=== PATIENT | female | born 1940 | race Caucasian/White ===

== ENCOUNTER → 2024-05-06 13:16 | Outpatient (REF) | payer MEDICARE, SELFPAY | LOC: HWRAD 13:16 | PROVIDERS: ATTENDING PHYSICIAN Family Medicine | DX: K80.20 Calculus of gallbladder without cholecystitis without obstruction (principal); R10.11 Right upper quadrant pain | CPT/HCPCS: 76700 ==

== ENCOUNTER 2024-06-25 18:00 | Inpatient (IN) | payer MEDICARE, SELFPAY ==
--- NOTE | 2024-06-22 09:59 | PTCARENOTE ---
During interview- patient stated she lives alone and no one will to be available post op. Stated she will be 'taking Uber home and I have an Apple watch if I need 911'. Pt stated she may have an acquaintance she can call if necessary. Vivien @
Dr. Martinez office notified of same.
--- NOTE | 2024-06-22 16:31 | PTCARENOTE ---
Umer Rinaldi was made aware of patient discharge situation noted by Sharon Padron RN>
[2024-06-25] VITALS (15 sets, daily range): BP systolic 0–182; BP diastolic 56–79; BMI 20.8
--- NOTE | 2024-06-25 07:30 | W.SUR.PREOP ---
Pre-Operative Surgical Note
-
I have examined this patient prior to the performance of the scheduled procedure.
The patient's condition is unchanged from the time of the current History and
Physical and the patient is able to undergo the scheduled procedure.
--- NOTE | 2024-06-25 11:05 | HP.FOC2 ---
Focused History & Physical
Chief Complaint
HPI:
Chief Complaint: right upper quadrant pain
HPI / Indication for Planned Procedure:
This is an 83-year-old female who presented to our clinic for evaluation of right upper quadrant pain. Tender to palpation and gallstones noted on ultrasound.
Relevant Past Medical History: Other ( Mitral regurgitation, hyperlipidemia, hypothyroidism, hypertension, pulmonary hypertension, MVP, CAD)
Relevant Social History: Negative
Relevant Family History: Negative
Relevant Past Surgical History: Negative
Review of Systems
Review of Pertinent Systems: All Systems Negative
Medication
See Medication form for detailed medications: Yes
Medication List (including Herbals & OTC):
levothyroxine 88 mcg tablet (Synthroid) 88 mcg PO HS 06/22/24
rosuvastatin 10 mg tablet 10 mg PO HS 06/22/24
Medications Reviewed: Yes
Allergies and Reactions
Patient has Allergies: Yes
Noted Allergies and Reactions:
Allergy/AdvReac Type Severity Reaction Status Date / Time
Penicillins Allergy Rash Verified 06/25/24 10:49
Pertinent Physical Exam
All Other Systems: Negative
Head/Neck: Normal
Diagnosis / Assessment
This is an 83-year-old female who presents with right upper quadrant pain, gallstones and ultrasound and high suspicion for biliary colic.
Plan / Procedure
Will plan for a laparoscopic cholecystectomy and cholangiogram.
The patient lives alone, given her advanced age and comorbidities, may keep overnight for observation/postoperative recovery.
Anesthesia/Sedation to be done by Anesthesia Provider: Yes
[2024-06-25] MEDS: TYLENOL 1000 MG PO (11:14)
[2024-06-25] MEDS: NORMOSOL-R 1000 IV (11:15)
--- NOTE | 2024-06-25 13:07 | W.IMMPOSTOP ---
Surgical Immed Post Op Note
-
Primary Surgeon: Haider Ray MD
Assisting Surgeon: None
Pre-op Diagnosis: Biliary colic
Post-op Diagnosis: Chronic cholecystitis, choledocholithiasis, duct of Luschka
Procedure Performed:
1. Laparoscopic cholecystectomy with cholangiogram
2. Laparoscopic Transcystic common bile duct exploration
Anesthesia Type: General
Specimen / Cultures:
Gallbladder and contents
Estimated Blood Loss: 11 cc
Complications: None
Operative Findings: Chronically inflamed gallbladder with adhesions from the duodenum over the infundibulum of the gallbladder. Critical view of safety obtained prior to a cholangiogram which demonstrated distal filling defects and poor filling of
the duodenum. The cholangiocatheter was advanced to push the biliary sludge into the duodenum and dilate the ampulla. Final cholangiogram demonstrated brisk flow into the duodenum. While removing the gallbladder off of the liver duct of Luschka
at the superior aspect of the gallbladder bed was identified with active leaking bile. This was ligated with a 3-0 Vicryl suture horizontal mattress. There was some diffuse raw surface bleeding from the liver bed that stopped with Surgicel and
pressure. Surgiflo was applied as well. A 19 Mexican round Deny drain was passed through the right lateralmost port and secured at the skin with a 2-0 nylon suture.
POST OP PLAN:
Imaging: None
Labs: Routine AM
Diet: Advance to Regular as tolerated
Analgesia: Tylenol 650mg q6 Saravanan, Eugenia 5mg q6 PRN, Dilaudid 0.5mg q2h PRN
Neuro/vascular checks: q4h
AC/AP: Hold Therapeutic AC, Ok for DVT PPx
Activity: Ad Madalyn
Wound/Incisions/Drains: Routine, DAVID to bulb suction
Abx: None
Dispo: RNF. Voicemail left for daughter
--- NOTE | 2024-06-25 13:13 | OR.RPT ---
Operative Report
Operative Report
Patient Name: Maggy Pearl
: 07/23/2040
Date of Operation: 06/25/2024
Preoperative Diagnosis: Biliary colic
Postoperative Diagnosis: Chronic cholecystitis, choledocholithiasis, duct of Luschka
Procedure(s):
1. Laparoscopic Cholecystectomy with Cholangiogram
2. Laparoscopic Transcystic common bile duct exploration
Surgeon(s):
Dr. Ray
Boxing Trainer(s):
REINA Bhatia
Anesthesia: General
Estimated Blood Loss: 17 cc
Urine Output: None
Drains/Lines/Implants: 19 Argentine round Deny drain
Specimens:
1. Gallbladder and contents
HPI/Surgical Indications:
This is an 83-year-old female with chronic right upper quadrant pain and found to have gallstones on ultrasound imaging. Exam, labs and imaging are consistent with symptomatic cholelithiasis. Risks/Benefits/Alternatives were discussed at length, and
the patient agreed to proceed with surgery.
Operative Findings: Chronically inflamed gallbladder with adhesions from the duodenum over the infundibulum of the gallbladder. Critical view of safety obtained prior to a cholangiogram which demonstrated distal filling defects and poor filling of
the duodenum. The cholangiocatheter was advanced to push the biliary sludge into the duodenum and dilate the ampulla. Final cholangiogram demonstrated brisk flow into the duodenum. While removing the gallbladder off of the liver duct of Luschka
at the superior aspect of the gallbladder bed was identified with active leaking bile. This was ligated with a 3-0 Vicryl suture horizontal mattress. There was some diffuse raw surface bleeding from the liver bed that stopped with Surgicel and
pressure. Surgiflo was applied as well. A 19 Argentine round Deny drain was passed through the right lateralmost port and secured at the skin with a 2-0 nylon suture.
Procedure Description:
The patient was brought to the Operating Room and placed in the supine position. IV antibiotics were infused and sequential compression devices were confirmed to be on. Following uneventful induction of general endotracheal anesthesia, an
orogastric tube was placed. The abdomen was prepped and draped in the usual sterile fashion. The abdomen was entered using an infraumbilical open Comfort technique with a 12 mm balloon trocar. Pneumoperitoneum to 15 mmHg pressure was obtained
without difficulty and we confirmed that no injury had occurred during our entry. The patient was positioned in reverse trendelenberg and rotated with the right side up slightly. Three (3) 5mm trocars were then placed along the right subcostal
margin. A locking grasping forceps was placed on the fundus of the gallbladder where it was then retracted cephalad and to the right. There was some flimsy adhesions between the duodenum and the infundibulum of the gallbladder which was lysed with
electrocautery and sharp dissection. Using appropriate grasping instruments, the peritoneum overlying the triangle of Calot was incised. The cystic duct/gallbladder junction was identified, dissected circumferentially. The cystic artery was
identified medially, was dissected circumferentially, and clipped. A critical view was obtained. A clip was then placed on the cystic duct/gallbladder junction and a ductotomy was made. A few small black oxalate gallstones were milked out of the
duct before free-flowing bile was identified. An intraoperative cholangiogram performed using fluoroscopy, which showed no flow of dye into the duodenum. There were no intra- or extrahepatic bile duct filling defects. The biliary anatomy appeared
otherwise normal. 1 mg of glucagon was administered and we allowed 2 minutes to pass before shooting another cholangiogram which redemonstrated poor flow into the duodenum and a few small filling defects. The catheter was then advanced through the
duct under fluoroscopic guidance pushing the defects into the duodenum and dilating up the ampulla. Final cholangiogram demonstrated and brisk flow into the duodenum and no residual filling defects. The catheter was removed and a clip was placed
proximally on the cystic duct and divided. This was reinforced with a 0 PDS Endoloop. The cystic artery was divided. The remaining soft tissue attachments of the gallbladder to the liver bed were then divided using electrocautery. There was no
spillage of bile or stones. The gallbladder bed was inspected and there was a fair amount of bleeding despite not violating the liver capsule from the superior aspect of the gallbladder bed this stopped with electrocautery and Surgicel application.
More medially we noted some bile leaking from the liver bed consistent with a duct of Luschka. This was ligated using a 3-0 Vicryl suture horizontal mattress, which completely stopped bile leak. We remove the Surgicel and though there was no
residual bleeding the entire gallbladder fossa was coated with Surgiflo/Floseal agent using a laparoscopic delivery device. The gallbladder was then extracted through the 12 mm trocar site using an endocatch bag. A 19 Argentine Edny drain was then
introduced through the right lateralmost port and passed up the right colic gutter and then across the gallbladder bed. This was then secured at the skin with a 2-0 nylon suture. The abdomen was again irrigated and excellent hemostasis was
assured. All remaining trocars were then removed and the pneumoperitoneum was evacuated. The 12 mm trocar site was closed using a running 0 PDS. All trocar sites were closed at the skin level using 4-0 Monocryl followed by Dermabond. Overall,
the patient tolerated the procedure well and was taken to the Recovery Room postoperatively in stable condition.
I was the attending physician and performed the procedure with assistance from the PHOTOGRAPHER STILL above. I was present for all portions of the case, excluding skin closure.
Haider Ray MD
[2024-06-25] MEDS: DILAUDID 0.25 MG IV ×4 (13:50→16:16)
[2024-06-25] MEDS: TYLENOL PO (17:00)
--- NOTE | 2024-06-25 17:56 | PTCARENOTE ---
pt admitted to room 2109 from the PACU. pt arrived at 1700 via bed, awake and alert. RINCON w/ ear buds in use for hearing aids. pt oriented to room, call patricia, bed controls and plan of care as documented. admission database and assessment
completed as documented. telemetry reading SR 70's. assisted to order dinner tray. will observe.
[2024-06-25] MEDS: HEPARIN 5000 UNITS SC (20:40)
[2024-06-25] MEDS: TYLENOL 650 MG PO (20:41)
[2024-06-25] MEDS: DILAUDID 0.2 MG IV ×2 (21:34→23:41)
[2024-06-26] MEDS: TYLENOL 650 MG PO ×5 (00:30→21:15)
[2024-06-26 03:15] VITALS: BP 121/51
[2024-06-26] MEDS: SYNTHROID 88 MCG PO (05:09)
[2024-06-26 05:34] VITALS: BMI 21.5
--- NOTE | 2024-06-26 06:29 | PTCARENOTE ---
Upon routine rounds DAVID not maintaining compression and DAVID dressing saturated. Dr Ray notified. Dressing changed and DAVID monitored. As evening progressed compression was held longer and less drainage noted on dressing. Dressing changed x 2.
[2024-06-26 07:15] VITALS: BP 114/58
[2024-06-26 07:42] LABS: % Basophils 0.1 % (0-2); % Eosinophils 0.1 % (0-6); % Immature Granulocytes 0.2 % (0-0.5); % Lymphocytes 20.5 % (20.5-51.1); % Monocytes 9.1 % (1.7-9.3); Absolute Lymphocytes 2.5 10^3/uL (1.2-3.4); Absolute Monocytes 1.1 10^3/uL (0.1-0.6); Absolute Neutrophils 8.5 10^3/uL (1.4-6.5); Hematocrit 40.4 % (37.0-47.0); Hemoglobin 13.1 g/dL (12.0-16.0); Mean Corp Hgb Conc. 32.4 g/dL (33.0-37.0); Mean Corpuscular Hgb 28.5 pg (27.0-31.0); Mean Platelet Volume 12.1 fL (7.4-10.4); Nucleated Red Blood Cells % 0 %; Platelet Count 203 10^3/uL (130-400); Red Blood Cell Count 4.59 10^6/uL (4.20-5.40); White Blood Cell Count 12.1 10^3/uL (4.8-10.8)
[2024-06-26 08:09] LABS: ALT (SGPT) 73 U/L (0-35); AST (SGOT) 87 U/L (14-36); Albumin 3.7 g/dl (3.5-5.0); Alkaline Phosphatase 74 U/L (38-126); Blood Urea Nitrogen 12 mg/dl (7-17); Calcium 9.2 mg/dl (8.4-10.2); Carbon Dioxide 30 mmol/L (22-30); Chloride 101 mmol/L (98-107); Estimated Creatinine Clearance 54 ml/min; Glucose 84 mg/dl (70-99); Potassium 4.2 mmol/L (3.5-5.1); Sodium 139 mmol/L (135-145); Total Bilirubin 0.8 mg/dl (0.2-1.3); Total Protein 5.5 g/dl (6.3-8.2); eGFR > 60.00
[2024-06-26] MEDS: HEPARIN 5000 UNITS SC ×2 (08:19→21:14)
[2024-06-26] MEDS: TYLENOL PO ×2 (08:20→08:25)
[2024-06-26] MEDS: MOTRIN 400 MG PO ×3 (09:23→22:58)
--- NOTE | 2024-06-26 09:26 | W.PN.GS2 ---
Addendum entered and electronically signed by Haider Ray MD 06/26/24 13:13:
I saw and examined the patient independently.
The resident's note was reviewed and I agree with the note, assessment and plan except where noted below.
Comment: Postoperative day 1 laparoscopic cholecystectomy with +IOC, duct cleared. There was a duct of Luschka which was suture-ligated.
Regular diet
Ibuprofen Tylenol and as needed narcotics
Out of bed ambulate
Anticipate discharge home tomorrow
Original Note:
Today's Communication / Plan
-
Regular diet
C/W DAVID drain
Assessment / Plan
-
83 yo female who is POD #1 lap cholecystectomy with IOC for chronic cholecystitis with noted choledocholithiasis which was able to be cleared intraoperatively, incidentally patient with duct of Luschka present which was able to be ligated. DAVID left
in place post operatively with nonbilious SSF noted.
AFVSS
Normal bilirubin with mild transaminitis
Mild reactive leukocytosis
--Regular diet as tolerated
--Ibuprofen, Tylenol, oxycodone prn for analgesics
--OOB ambulate
--Heparin sq and scds for VTE ppx
--C/W DAVID, anticipate removal prior to discharge
Tentative d/c tomorrow
Subjective Data
-
Date of Service: June 26, 2024
Patient seen and examined at bedside with Dr. Ray. Denies n/v. Requesting ibuprofen for pain as tylenol hasnt been enough. Tolerating diet.
Objective Data
-
Intake and Output
06/25/2424 06/27/24
06:59 06:59 06:59
Intake Total 590 / 590
Output Total 225 / 225 20 / 20
Balance 365 / 365 -20 / -20
Intake:
Oral fluids 240 / 240
IV fluids (Total) 350 / 350
Normosol 350 / 350
Output:
Drain Output (Total)
Right Lower Abdomen Issac-
Roach
Urine, Voided 200 / 200
Other:
Number of approximated MODERATE 1
amounts of urine
Vital Signs
Temp Pulse Resp BP Pulse Ox
98.3 F 64 18 114/58 96
06/26/24 07:15 06/26/24 07:15 06/26/24 07:15 06/26/24 07:15 06/26/24 07:15
Lab Results
06/26/24 05:13
06/26/24 05:13
Calcium 9.2 mg/dl (8.4-10.2) 06/26/24 05:13
Total Bilirubin 0.8 mg/dl (0.2-1.3) 06/26/24 05:13
AST 87 U/L (14-36) H 06/26/24 05:13
ALT 73 U/L (0-35) H 06/26/24 05:13
Alkaline Phosphatase 74 U/L (38-126) 06/26/24 05:13
Total Protein 5.5 g/dl (6.3-8.2) L 06/26/24 05:13
Albumin 3.7 g/dl (3.5-5.0) 06/26/24 05:13
Physical Exam
-
NAD
ABD soft, mild incisional tenderness, nd
DAVID with SSF outputs (nonbilious)
[2024-06-26] MEDS: ROXICODONE 5 MG PO (10:40)
[2024-06-26 11:33] VITALS: BP 129/53
--- NOTE | 2024-06-26 14:03 | CM ---
Met with patient at bedside; initial assessment completed
Pharmacy verified: [facility] @ [address]
Family Physician verified/asked Admissions to update medical record: Ash Hudson DO, [address] [facility], [place], [place]
Patient reported that she lives alone in a multilevel home; 1 step to enter; 13 steps between floors; railings present; powder room on 1st floor; 2nd floor bath has a stall shower
Patient reported that she is very independent with ambulation, stairs, and ADLs; Drives; daughter, Mandi, provides assistance/support if needed; and has other family and friends to help her when she goes home if needed
No DME other than a BP cuff
No SNF history
Plans to take an UBER for transport home
Plan: discharge to home tomorrow; no needs
[2024-06-26 15:15] VITALS: BP 107/48
[2024-06-26 19:00] VITALS: BP 137/55
[2024-06-27] VITALS (7 sets, daily range): BP systolic 112–183; BP diastolic 57–78
[2024-06-27] MEDS: TYLENOL PO (00:40)
[2024-06-27] MEDS: TYLENOL 650 MG PO ×5 (03:48→19:50)
[2024-06-27] MEDS: ROXICODONE 5 MG PO ×4 (03:53→19:49)
[2024-06-27] MEDS: SYNTHROID 88 MCG PO (05:59)
[2024-06-27] MEDS: MOTRIN 400 MG PO (06:05)
[2024-06-27 08:01] LABS: % Basophils 0.5 % (0-2); % Eosinophils 1.4 % (0-6); % Immature Granulocytes 0.2 % (0-0.5); % Lymphocytes 22.1 % (20.5-51.1); % Monocytes 7.1 % (1.7-9.3); % Neutrophils 68.7 % (42.2-75.2); Absolute Basophils 0.1 10^3/uL (0-0.2); Absolute Eosinophils 0.1 10^3/uL (0-0.7); Absolute Monocytes 0.7 10^3/uL (0.1-0.6); Absolute Neutrophils 6.3 10^3/uL (1.4-6.5); Hematocrit 37.9 % (37.0-47.0); Hemoglobin 12.6 g/dL (12.0-16.0); Mean Corp Hgb Conc. 33.2 g/dL (33.0-37.0); Mean Corpuscular Hgb 28.1 pg (27.0-31.0); Mean Corpuscular Volume 84.4 fL (81.0-99.0); Nucleated Red Blood Cells % 1.4 %; Red Blood Cell Count 4.49 10^6/uL (4.20-5.40); White Blood Cell Count 9.1 10^3/uL (4.8-10.8)
[2024-06-27] MEDS: HEPARIN 5000 UNITS SC ×2 (08:12→19:50)
[2024-06-27 08:19] LABS: ALT (SGPT) 46 U/L (0-35); AST (SGOT) 46 U/L (14-36); Albumin 3.5 g/dl (3.5-5.0); Alkaline Phosphatase 63 U/L (38-126); Blood Urea Nitrogen 13 mg/dl (7-17); Carbon Dioxide 27 mmol/L (22-30); Chloride 103 mmol/L (98-107); Estimated Creatinine Clearance 48 ml/min; Glucose 90 mg/dl (70-99); Potassium 4.5 mmol/L (3.5-5.1); Sodium 138 mmol/L (135-145); Total Bilirubin 0.7 mg/dl (0.2-1.3); Total Protein 5.2 g/dl (6.3-8.2); eGFR > 60.00
[2024-06-27] MEDS: APRESOLINE 5 MG IV (08:51)
[2024-06-27] MEDS: FLAGYL 500 MG 100 IV ×2 (09:06→17:07)
[2024-06-27] MEDS: DILAUDID 0.25 MG IV ×2 (09:09→12:51)
[2024-06-27] MEDS: LEVAQUIN 100 IV (09:09)
--- NOTE | 2024-06-27 09:14 | W.PN.GS2 ---
Addendum entered and electronically signed by Haider Ray MD 06/27/24 15:07:
I saw and examined the patient independently.
The Garment Finisher's note was reviewed and I agree with the note, assessment and plan except where noted below.
Comment: 83-year-old female postoperative day 2 from a laparoscopic cholecystectomy with noted choledocholithiasis that was cleared as well as a duct of Luschka that was suture-ligated. Initially did well postoperative day 1 but now is having right
upper quadrant pain and notable for bile in her DAVID drain concerning for bile leak, likely from the duct of Luschka.
GI consult for ERCP sphincterotomy/stenting for decompression of the biliary system.
Keep DAVID to bulb suction for now
Okay for clears, n.p.o. at midnight for procedure.
Blood pressure control
Patient agreeable to plan of care above. I have tried calling her daughter multiple times over the past few days and left several messages and missed calls.
Original Note:
Today's Communication / Plan
-
GI eval for ERCP
Assessment / Plan
-
83 yo female who is POD #2 lap cholecystectomy with IOC for chronic cholecystitis with noted choledocholithiasis which was able to be cleared intraoperatively, incidentally patient with duct of Luschka present which was able to be ligated. DAVID left
in place post operatively and now with bilious outputs noted
AFVSS
Hypertension noted, suspect secondary to pain
Normal bilirubin with mild transaminitis
Mild reactive leukocytosis now resolved
Bile leak suspected
--NPO pending GI consult, otherwise ok for clear liquids
--Trend labs
--5mg IV hydralazine prn HTN
--Consult gastroenterology to follow with us given suspected bile leak, will need ERCP
--Ibuprofen, Tylenol, oxycodone, diilaudid prn for analgesics
--OOB ambulate
--Heparin sq and scds for VTE ppx
Subjective Data
-
Date of Service: June 27, 2024
Patient seen and examined at bedside with Dr. Ray. Pain worsened overnight. Denies n/v.
Objective Data
-
Intake and Output
06/26/24 06/27/24 06/28/24
06:59 06:59 06:59
Intake Total 590 / 590 180 / 180 480 / 480
Output Total 225 / 225 215 / 215 435 / 435
Balance 365 / 365 -35 / -35 45 / 45
Intake:
Oral fluids 240 / 240 180 / 180 480 / 480
IV fluids (Total) 350 / 350
Normosol 350 / 350
Output:
Drain Output (Total) 40 / 40 85 / 85
Right Lower Abdomen Issac- 40 / 40 85 / 85
Roach
Urine, Voided 200 / 200 175 / 175 350 / 350
Other:
Number of approximated MODERATE 1
amounts of urine
Vital Signs
Temp Pulse Resp BP Pulse Ox
97.2 F 53 16 183/87 96
06/27/24 03:15 06/27/24 03:15 06/27/24 03:15 06/27/24 08:51 06/27/24 03:15
Lab Results
06/27/24 05:59
06/27/24 07:41
Calcium 9.0 mg/dl (8.4-10.2) 06/27/24 07:41
Total Bilirubin 0.7 mg/dl (0.2-1.3) 06/27/24 07:41
AST 46 U/L (14-36) H 06/27/24 07:41
ALT 46 U/L (0-35) H 06/27/24 07:41
Alkaline Phosphatase 63 U/L (38-126) 06/27/24 07:41
Total Protein 5.2 g/dl (6.3-8.2) L 06/27/24 07:41
Albumin 3.5 g/dl (3.5-5.0) 06/27/24 07:41
Physical Exam
-
NAD
ABD soft, RUQ tenderness, mild incisional tenderness, nd
DAVID with bilious outputs
--- NOTE | 2024-06-27 10:10 | CON.GI ---
Addendum entered and electronically signed by Steven Aguiar MD 06/27/24 14:54:
I saw and examined the patient.
The UNDERWATER HUNTER or PA's note was reviewed and I agree with the note.
Comment:
Pt is a 83 y/o female with a hx of a cholecystectomy yesterday with acute pain at night found to have bile from surgical drain. She had ligation of the duct of luschka which is thought to have opened. She only has mild pain. Lfts and wbc are
normal
abd: drain with bile
soft, mildly tender
impression:
bile leak
abd pain
plan:
d/w Dr. Bullock and Dr. Torres
ERCP planned
follow lfts
monitor output
NPO
Original Note:
Consultation
-
Date/Time Consultation Requested: 06/27/24 0850
Date/Time Consultation Performed: 06/27/24 1015
Requesting Provider: CAL Porras
Performing Provider: Dr Aguiar / Paris Huber PA-C
Reason for Consultation: possible post-operative bile leak
Medical History
Chief Complaint / HPI
Chief Complaint: abdominal pain
History of Present Illness:
This is an 83 year old female with a past medical history of HTN, CAD, pulmonary HTN, hypothyroidism, hyperlipidemia who underwent laparoscopic cholecystectomy on 06/25/[address] Xie who did well post-operatively yesterday and was anticipated
to be discharged home today 06/27, but developed worsening abdominal pain early this morning around 2AM. Per operative report, intraoperative cholangiogram was positive with sludge noted in the CBD, which was cleared. Report notes a duct of Luschka
that was suture-ligated. Per Surgery, there is concern this has opened. Bilious drainage noted in surgical drain and GI is consulted for possible ERCP for biliary decompression. Labs reviewed: WBC count 9.1, hemoglobin 12.6, bili 0.7, AST 46, ALT
46, alk phos 63. She is not on any anticoagulation.
Past Medical History
Past Medical History: Other ( Mitral regurgitation, hyperlipidemia, hypothyroidism, hypertension, pulmonary hypertension, MVP, CAD)
Past Surgical History: Cholecystectomy
Social History
Tobacco: Non-Smoker
Alcohol: None
Living: Alone
Allergies / Home Medications
Allergy/AdvReac Type Severity Reaction Status Date / Time
Penicillins Allergy Rash Verified 06/25/24 10:49
�Medication �Instructions �Recorded
levothyroxine 88 mcg tablet 88 mcg PO HS 06/22/24
(Synthroid)
rosuvastatin 10 mg tablet 10 mg PO HS 06/22/24
acetaminophen 325 mg tablet 650 mg (2 x 325 mg) PO Q6HPRN PRN 06/25/24
mild pain #14 tabs
ibuprofen 600 mg tablet 600 mg PO Q6H PRN pain #14 tabs 06/25/24
tramadol 50 mg tablet 25 mg (1/2 x 50 mg) PO Q6HPRN PRN 06/25/24
severe pain/breakthrough pain #8
tabs
Review of Systems
-
History Source: Patient
All other systems: A 12 pt ROS was Negative except as stated above in HPI
Vital Signs
Temp Pulse Resp BP Pulse Ox
97.2 F 53 16 183/87 96
06/27/24 03:15 06/27/24 03:15 06/27/24 03:15 06/27/24 08:51 06/27/24 03:15
Physical Exam
Exam
General: Well Developed, Well Nourished and No Apparent Distress
Respiratory: Clear
Cardiac: Regular Rhythm
GI: Soft, Non Distended, Normal Bowel Sounds and Other (+mild RUQ and epigastric tenderness; surgical drain in place with bilious fluid output)
Skin: Warm and Dry
Neuro: AO x 3
Psych: Calm
Results
WBC 9.1 10^3/uL (4.8-10.8) 06/27/24 05:59
Hgb 12.6 g/dL (12.0-16.0) 06/27/24 05:59
Hct 37.9 % (37.0-47.0) 06/27/24 05:59
MCV 84.4 fL (81.0-99.0) 06/27/24 05:59
Plt Count 10^3/uL (130-400) 06/27/24 05:59
Absolute Neuts (auto) 6.3 10^3/uL (1.4-6.5) 06/27/24 05:59
Sodium 138 mmol/L (135-145) 06/27/24 07:41
Potassium 4.5 mmol/L (3.5-5.1) 06/27/24 07:41
Chloride 103 mmol/L (98-107) 06/27/24 07:41
Carbon Dioxide 27 mmol/L (22-30) 06/27/24 07:41
BUN 13 mg/dl (7-17) 06/27/24 07:41
Creatinine 0.8 mg/dL (0.6-1.0) 06/27/24 07:41
Calcium 9.0 mg/dl (8.4-10.2) 06/27/24 07:41
Total Bilirubin 0.7 mg/dl (0.2-1.3) 06/27/24 07:41
AST 46 U/L (14-36) H 06/27/24 07:41
ALT 46 U/L (0-35) H 06/27/24 07:41
Alkaline Phosphatase 63 U/L (38-126) 06/27/24 07:41
Diagnostic Image Results:
Prior GI Procedures:
EGD: Never
Colonoscopy: Never
Assessment / Plan
-
This is an 83 year old female with a past medical history of HTN, CAD, pulmonary HTN, hypothyroidism, hyperlipidemia who underwent laparoscopic cholecystectomy on 06/25/[address] Xie who did well post-operatively yesterday and was anticipated
to be discharged home today 06/27, but developed worsening abdominal pain early this morning around 2AM. Per operative report, intraoperative cholangiogram was positive with sludge noted in the CBD, which was cleared. Report notes a duct of Luschka
that was suture-ligated. Per Surgery, there is concern this has opened. Bilious drainage noted in surgical drain and GI is consulted for possible ERCP for biliary decompression.
IMPRESSION / PLAN
Status post laparascopic cholecystectomy (POD #2) - now with suspected bile leak
- Normal bilirubin with mildly elevated transaminases
- continue to trend labs
- continue analgesia per Surgery
- plan for ERCP for biliary decompression with sphincterotomy and stent placement -- timing to be discussed further with Dr Aguiar
-
-
Thank you for consultation and allowing me to participate in the patient's care. Please call the mergers and acquisitions attorney GI physician during the after hours with any questions or concerns.
[2024-06-27] MEDS: ZOFRAN 4 MG IV (12:54)
[2024-06-27] MEDS: DILAUDID 0.5 MG IV (15:28)
--- NOTE | 2024-06-27 15:33 | PTCARENOTE ---
patient complains of pain unrelieved by pain medication. this nurse communicated the issue to GROUP SUPERVISOR YARD and dilaudid was increased from 0.25 to 0.5 mg IV Q4H patient encouraged to ambulate. patient stated she feels to weak to get up. bedside commode was
placed in the room. patient refused meals, stating she does not have any appetite. PO fluids offered
--- NOTE | 2024-06-27 19:19 | PTCARENOTE ---
patient complains of pain unrelieved by pain medication. this nurse communicated the issue to COMMUNITY RELATIONS REPRESENTATIVE and dilaudid was increased from 0.25 to 0.5 mg IV Q4H patient encouraged to ambulate. patient stated she feels to weak to get up. bedside commode was
placed in the room.
[2024-06-28] MEDS: TYLENOL PO ×4 (00:49→23:08)
[2024-06-28] MEDS: FLAGYL 500 MG 100 IV ×3 (02:58→17:23)
[2024-06-28] MEDS: ZOFRAN 4 MG IV ×2 (03:19→18:42)
[2024-06-28 03:34] VITALS: BP 135/61
[2024-06-28] MEDS: SYNTHROID 88 MCG PO (05:20)
[2024-06-28 07:39] VITALS: BP 126/68
[2024-06-28] MEDS: HEPARIN SC (08:04)
[2024-06-28] MEDS: TYLENOL 650 MG PO ×3 (08:04→19:39)
[2024-06-28 10:20] VITALS: BP 167/66
[2024-06-28] MEDS: LEVAQUIN 100 IV (10:22)
--- NOTE | 2024-06-28 11:14 | W.PN.GS2 ---
Addendum entered and electronically signed by Haider Ray MD 06/28/24 11:24:
I saw and examined the patient independently.
The Snow Shoveler's note was reviewed and I agree with the note, assessment and plan except where noted below.
Comment: 83-year-old female postoperative day 3 from a laparoscopic cholecystectomy with IOC/LTCBDE for chronic cholecystitis and + choledocholithiasis with a duct of Luschka that was suture-ligated but has unfortunately opened up again.
GI consulted for ERCP which will be done today.
Okay to resume low-fat diet after this procedure.
Anticipate discharge home with DAVID, will need VNA
Original Note:
Today's Communication / Plan
-
ERCP
C/W DAVID
Assessment / Plan
-
83 yo female who is POD #3 lap cholecystectomy with IOC for chronic cholecystitis with noted choledocholithiasis which was able to be cleared intraoperatively, incidentally patient with duct of Luschka present which was able to be ligated. DAVID left
in place post operatively and now with bilious outputs noted
AFVSS
Labs pending
--ERCP today for stent placement with GI
--Trend labs
--Ibuprofen, Tylenol, oxycodone, Dilaudid prn for analgesics
--OOB ambulate
--C/W DAVID, may need to remain in place upon d/c. Consult CM for VNA
--Heparin sq and scds for VTE ppx
Subjective Data
-
Date of Service: June 28, 2024
Patient seen and examined at bedside with Dr. Ray. Pain better today. No further nausea.
Objective Data
-
Intake and Output
06/27/24 06/28/24 06/29/24
06:59 06:59 06:59
Intake Total 180 / 180 1440 / 1440
Output Total 215 / 215 715 / 715
Balance -35 / -35 72 72
Intake:
Oral fluids 180 / 180 1440 / 1440
Output:
Drain Output (Total)
Right Lower Abdomen Issac-
Roach
Urine, Voided 175 / 175 350 / 350
Other:
Number of approximated MODERATE 2
amounts of urine
Number of approximated LARGE 1
amounts of urine
Vital Signs
Temp Pulse Resp BP Pulse Ox
97.5 F 58 12 167/66 95
06/28/24 10:20 06/28/24 10:20 06/28/24 10:20 06/28/24 10:20 06/28/24 10:20
Calcium 9.0 mg/dl (8.4-10.2) 06/27/24 07:41
Total Bilirubin 0.7 mg/dl (0.2-1.3) 06/27/24 07:41
AST 46 U/L (14-36) H 06/27/24 07:41
ALT 46 U/L (0-35) H 06/27/24 07:41
Alkaline Phosphatase 63 U/L (38-126) 06/27/24 07:41
Total Protein 5.2 g/dl (6.3-8.2) L 06/27/24 07:41
Albumin 3.5 g/dl (3.5-5.0) 06/27/24 07:41
Physical Exam
-
NAD
ABD soft, RUQ tenderness, mild incisional tenderness, nd
DAVID with bilious outputs
--- NOTE | 2024-06-28 11:14 | CM ---
Addendum entered by Kira Smart 06/28/24 15:49:
Patient seen at bedside. Patient requested referral to [facility] for home health care. CM will send referral via all scripts.
Original Note:
Patient s/p ERCP today per chart review and now with DAVID drain. CM will review with patient need for VN supports. CM will continue to follow for discharge planning needs.
Plan; home with VN vs home with no needs.
[2024-06-28 11:45] LABS: % Basophils 0.1 % (0-2); % Eosinophils 0.1 % (0-6); % Immature Granulocytes 0.2 % (0-0.5); % Lymphocytes 12.4 % (20.5-51.1); % Monocytes 7.5 % (1.7-9.3); % Neutrophils 79.7 % (42.2-75.2); Absolute Lymphocytes 1.4 10^3/uL (1.2-3.4); Absolute Monocytes 0.8 10^3/uL (0.1-0.6); Absolute Neutrophils 8.7 10^3/uL (1.4-6.5); Hematocrit 41.9 % (37.0-47.0); Hemoglobin 13.9 g/dL (12.0-16.0); Mean Corp Hgb Conc. 33.2 g/dL (33.0-37.0); Mean Corpuscular Volume 87.3 fL (81.0-99.0); Mean Platelet Volume 11.4 fL (7.4-10.4); Nucleated Red Blood Cells % 0 %; Platelet Count 167 10^3/uL (130-400); Red Cell Dist. Width 14.7 % (11.5-14.5); White Blood Cell Count 10.9 10^3/uL (4.8-10.8)
[2024-06-28 11:46] LABS: ALT (SGPT) 37 U/L (0-35); AST (SGOT) 42 U/L (14-36); Albumin 3.5 g/dl (3.5-5.0); Alkaline Phosphatase 71 U/L (38-126); Blood Urea Nitrogen 9 mg/dl (7-17); Calcium 9.1 mg/dl (8.4-10.2); Carbon Dioxide 25 mmol/L (22-30); Chloride 102 mmol/L (98-107); Estimated Creatinine Clearance 64 ml/min; Glucose 106 mg/dl (70-99); Sodium 137 mmol/L (135-145); Total Bilirubin 1.3 mg/dl (0.2-1.3); Total Protein 5.4 g/dl (6.3-8.2); eGFR > 60.00
[2024-06-28 15:23] VITALS: BP 175/79
[2024-06-28 19:18] VITALS: BP 173/80
[2024-06-28] MEDS: HEPARIN 5000 UNITS SC (19:39)
[2024-06-28] MEDS: COMPAZINE 5 MG IV (22:01)
[2024-06-28 23:01] VITALS: BP 166/77
[2024-06-29] MEDS: FLAGYL 500 MG 100 IV ×3 (02:49→17:00)
[2024-06-29 03:04] VITALS: BP 174/70
[2024-06-29] MEDS: TYLENOL 650 MG PO ×4 (04:05→19:56)
[2024-06-29] MEDS: SYNTHROID 88 MCG PO (04:05)
[2024-06-29] MEDS: ROXICODONE 5 MG PO ×3 (04:05→20:01)
[2024-06-29] MEDS: DILAUDID 0.5 MG IV ×2 (05:50→11:03)
[2024-06-29 07:09] VITALS: BP 149/72
[2024-06-29] MEDS: TYLENOL PO (07:14)
[2024-06-29] MEDS: HEPARIN 5000 UNITS SC ×2 (07:16→20:02)
[2024-06-29] MEDS: ZOFRAN 4 MG IV (07:16)
--- NOTE | 2024-06-29 08:16 | W.PN.GI.CBS2 ---
Today's Communication / Plan
-
await lipase/obs series
Assessment / Plan
-
This is an 83 year old female with a past medical history of HTN, CAD, pulmonary HTN, hypothyroidism, hyperlipidemia who underwent laparoscopic cholecystectomy on 06/25/[address] Xie who did well post-operatively yesterday and was anticipated
to be discharged home today 06/27, but developed worsening abdominal pain early this morning around 2AM. Per operative report, intraoperative cholangiogram was positive with sludge noted in the CBD, which was cleared. Report notes a duct of Luschka
that was suture-ligated. Per Surgery, there is concern this has opened. Bilious drainage noted in surgical drain and GI is consulted for possible ERCP for biliary decompression.
IMPRESSION / PLAN
Status post laparascopic cholecystectomy (POD #2) - now with suspected bile leak
s/p ERCP with removal of stones/stent placement
new abdominal pain
1. await lfts
2. check lipase
3. check obs series
Subjective
Subjective
Date of Service: June 29, 2024
Pt with pain since yesterday. It is on the left side, back. drain with no bile, only air
Objective
Data Reviewed
Laboratory Data:
Laboratory Results
Total Bilirubin 1.3 mg/dl (0.2-1.3) 06/28/24 10:58
AST 42 U/L (14-36) H 06/28/24 10:58
ALT 37 U/L (0-35) H 06/28/24 10:58
Alkaline Phosphatase 71 U/L (38-126) 06/28/24 10:58
Vital Signs and I&O:
Vital Signs
Temp Pulse Resp BP Pulse Ox
98.6 F 72 15 149/72 94
06/29/24 07:09 06/29/24 07:09 06/29/24 07:09 06/29/24 07:09 06/29/24 07:09
I&O
06/28/24 06/29/24 06/30/24
06:59 06:59 06:59
Intake Total 1440 / 1440 1020 / 1020 480 / 480
Output Total 715 / 715 125 / 125
Balance 725 / 725 895 / 895 480 / 480
Physical Exam
Physical Exam
Cardiology: S1 and S2
GI: Soft and Tender (mid abd/left side)
Neuro: Non Focal
--- NOTE | 2024-06-29 08:42 | PTCARENOTE ---
Patient's telemetry noted to be alarming for tachycardia; Upon entering patient's room she was noted to be vomiting; Small amount of green emesis, roughly twenty milliliters; Patient states she has been nauseous on and off throughout the night; PRN
Zofran given, see MAR; Surgery aware; Upon reassessing nausea/vomiting following zofran administration patient states nausea has improved and she has had no further episodes of vomiting at this time; Patient heart rate now resting in the sixties to
seventies, normal sinus rhythm
[2024-06-29 08:56] LABS: ALT (SGPT) 34 U/L (0-35); AST (SGOT) 43 U/L (14-36); Albumin 4.1 g/dl (3.5-5.0); Alkaline Phosphatase 84 U/L (38-126); Direct Bilirubin 0.3 mg/dl (0.0-0.4); Total Protein 6.1 g/dl (6.3-8.2)
[2024-06-29 08:59] LABS: ALT (SGPT) 33 U/L (0-35); AST (SGOT) 43 U/L (14-36); Alkaline Phosphatase 81 U/L (38-126); Blood Urea Nitrogen 12 mg/dl (7-17); Calcium 9.9 mg/dl (8.4-10.2); Carbon Dioxide 23 mmol/L (22-30); Chloride 99 mmol/L (98-107); Estimated Creatinine Clearance 54 ml/min; Glucose 101 mg/dl (70-99); Sodium 138 mmol/L (135-145); Total Bilirubin 1.1 mg/dl (0.2-1.3); eGFR > 60.00
[2024-06-29 09:16] LABS: % Basophils 0.3 % (0-2); % Eosinophils 0.4 % (0-6); % Immature Granulocytes 0.6 % (0-0.5); % Lymphocytes 13.3 % (20.5-51.1); % Neutrophils 80.4 % (42.2-75.2); Absolute Eosinophils 0.1 10^3/uL (0-0.7); Absolute Immature Granulocytes 0.1 10^3/uL (0-0.05); Absolute Monocytes 0.7 10^3/uL (0.1-0.6); Absolute Neutrophils 11.8 10^3/uL (1.4-6.5); Hemoglobin 15.1 g/dL (12.0-16.0); Mean Corp Hgb Conc. 32.8 g/dL (33.0-37.0); Mean Corpuscular Hgb 28.1 pg (27.0-31.0); Mean Corpuscular Volume 85.5 fL (81.0-99.0); Mean Platelet Volume 11.8 fL (7.4-10.4); Nucleated Red Blood Cells % 0 %; Platelet Count 305 10^3/uL (130-400); Red Blood Cell Count 5.38 10^6/uL (4.20-5.40); Red Cell Dist. Width 14.6 % (11.5-14.5); White Blood Cell Count 14.7 10^3/uL (4.8-10.8)
[2024-06-29] MEDS: LEVAQUIN 100 IV (09:22)
[2024-06-29] MEDS: MOTRIN 400 MG PO ×2 (10:03→17:06)
--- NOTE | 2024-06-29 11:02 | W.PN.GS2 ---
Today's Communication / Plan
-
Clear liquid diet
Pain/nausea management
Assessment / Plan
-
83 yo female who is POD #4 lap cholecystectomy with IOC for chronic cholecystitis with noted choledocholithiasis which was initially thought to have been cleared intraoperatively, incidentally patient with duct of Luschka present which was able to
be ligated. DAVID left in place post operatively and now with bilious outputs noted. PPD #1 ERCP with choledocholithiasis which was cleared with sphincterotomy and stent placement
AFVSS
Mild Leukocytosis
LFT's not elevated
DAVID clearing with outputs tapering down an no longer with obvious bile noted in drain, serosanguineous drainage present
+N/V and increased pain since ERCP. ?Pancreatitis; lipase is pending
Obstruction series negative
--Clear liquids as tolerated
--GI following with us
--Trend labs
--Zofran prn
--Ibuprofen, Tylenol, oxycodone, Dilaudid prn for analgesics
--OOB ambulate
--C/W DAVID
--c/w ABX
--Heparin sq and scds for VTE ppx
Subjective Data
-
Date of Service: June 29, 2024
Patient seen and examined at bedside. Pain worsening to upper abdomen. Notes nausea, vomiting of bilious emesis this am.
Objective Data
-
Intake and Output
06/28/24 06/29/24 06/30/24
06:59 06:59 06:59
Intake Total 1440 / 1440 1020 / 1020 680 / 680
Output Total 715 / 715 125 / 125
Balance 725 / 725 895 / 895 680 / 680
Intake:
Oral fluids 1440 / 1440 720 / 720 480 / 480
IV fluids (Total) 100 / 100
IV piggybacks 200 / 200 200 / 200
Output:
Drain Output (Total) 365 / 365 125 / 125
Right Lower Abdomen Issac- 365 / 125 / 125
Roach
Urine, Voided 350 / 350
Other:
Number of approximated MODERATE 2
amounts of urine
Number of approximated LARGE 1 1 2
amounts of urine
Vital Signs
Temp Pulse Resp BP Pulse Ox
98.6 F 72 15 149/72 94
06/29/24 07:09 06/29/24 07:09 06/29/24 07:09 06/29/24 07:09 06/29/24 07:09
Lab Results
06/29/24 07:23
06/29/24 07:23
Calcium 9.9 mg/dl (8.4-10.2) 06/29/24 07:23
Total Bilirubin 1.0 mg/dl (0.2-1.3) 06/29/24 07:23
Total Bilirubin 1.1 mg/dl (0.2-1.3) 06/29/24 07:23
Direct Bilirubin 0.3 mg/dl (0.0-0.4) 06/29/24 07:23
AST 43 U/L (14-36) H 06/29/24 07:23
AST 43 U/L (14-36) H 06/29/24 07:23
ALT 33 U/L (0-35) 06/29/24 07:23
ALT 34 U/L (0-35) 06/29/24 07:23
Alkaline Phosphatase 81 U/L (38-126) 06/29/24 07:23
Alkaline Phosphatase 84 U/L (38-126) 06/29/24 07:23
Total Protein 6.0 g/dl (6.3-8.2) L 06/29/24 07:23
Total Protein 6.1 g/dl (6.3-8.2) L 06/29/24 07:23
Albumin 4.0 g/dl (3.5-5.0) 06/29/24 07:23
Albumin 4.1 g/dl (3.5-5.0) 06/29/24 07:23
Physical Exam
-
NAD
ABD soft, epigastric tenderness, mild incisional tenderness, nd
DAVID with SSF
[2024-06-29] MEDS: LR 1000 IV ×2 (11:29→22:32)
[2024-06-29 11:40] VITALS: BP 121/60
--- NOTE | 2024-06-29 12:54 | PTCARENOTE ---
Patient telemetry alarm noted, five beat run of ventricular tachycardia; Patient asleep during this episode; General surgery BALL SORTER notified; Magnesium level ordered; HR now NSR in the 70s, RR 12; Assessment and plan of care ongoing
[2024-06-29 15:20] VITALS: BP 166/74
--- NOTE | 2024-06-29 15:49 | CM ---
dev manager reviewed patient's chart and met with patient and referral sent to [facility], plan is to home with [facility] visiting nurses.
Plan; Home with [facility]
Albertina Batres
[phone]
[2024-06-29 16:46] LABS: Lipase > 4000 U/L (23-300)
--- NOTE | 2024-06-29 17:05 | W.PN.UPDATE ---
Update Note
Progress Note Update
lipase came back as > 4,000
on clear liquids
increased IVfluids
will recheck lipase and exam in am
[2024-06-29 19:25] VITALS: BP 119/64
[2024-06-29 23:20] VITALS: BP 154/70
[2024-06-30] MEDS: FLAGYL 500 MG 100 IV ×3 (01:12→17:41)
[2024-06-30] MEDS: MOTRIN 400 MG PO (01:17)
[2024-06-30 03:30] VITALS: BP 131/62
[2024-06-30] MEDS: TYLENOL PO ×4 (05:28→11:41)
[2024-06-30] MEDS: LR 1000 IV ×3 (05:44→20:35)
[2024-06-30] MEDS: SYNTHROID 88 MCG PO (05:45)
[2024-06-30 07:00] VITALS: BP 131/62
[2024-06-30] MEDS: ZOFRAN 4 MG IV ×3 (07:06→19:18)
[2024-06-30 07:30] LABS: % Basophils 0.4 % (0-2); % Eosinophils 1.5 % (0-6); % Immature Granulocytes 0.4 % (0-0.5); % Lymphocytes 9.5 % (20.5-51.1); % Monocytes 7.4 % (1.7-9.3); % Neutrophils 80.8 % (42.2-75.2); Absolute Basophils 0.1 10^3/uL (0-0.2); Absolute Eosinophils 0.2 10^3/uL (0-0.7); Absolute Immature Granulocytes 0.1 10^3/uL (0-0.05); Absolute Lymphocytes 1.3 10^3/uL (1.2-3.4); Hemoglobin 12.4 g/dL (12.0-16.0); Mean Corp Hgb Conc. 34.4 g/dL (33.0-37.0); Mean Corpuscular Hgb 27.9 pg (27.0-31.0); Mean Corpuscular Volume 80.9 fL (81.0-99.0); Nucleated Red Blood Cells % 0 %; Red Blood Cell Count 4.45 10^6/uL (4.20-5.40); Red Cell Dist. Width 14.7 % (11.5-14.5); White Blood Cell Count 13.6 10^3/uL (4.8-10.8)
[2024-06-30 07:41] LABS: ALT (SGPT) 21 U/L (0-35); AST (SGOT) 35 U/L (14-36); Albumin 2.6 g/dl (3.5-5.0); Alkaline Phosphatase 54 U/L (38-126); Blood Urea Nitrogen 11 mg/dl (7-17); Calcium 8.8 mg/dl (8.4-10.2); Carbon Dioxide 26 mmol/L (22-30); Chloride 103 mmol/L (98-107); Estimated Creatinine Clearance 64 ml/min; Glucose 66 mg/dl (70-99); Potassium 3.9 mmol/L (3.5-5.1); Sodium 137 mmol/L (135-145); Total Bilirubin 1.1 mg/dl (0.2-1.3); Total Protein 4.4 g/dl (6.3-8.2); eGFR > 60.00
[2024-06-30 07:45] LABS: Mean Platelet Volume 10.7 fL (7.4-10.4); Platelet Count 189 10^3/uL (130-400)
[2024-06-30 07:49] LABS: Lipase > 4000 U/L (23-300)
[2024-06-30] MEDS: HEPARIN 5000 UNITS SC ×2 (08:53→19:12)
[2024-06-30] MEDS: LEVAQUIN 100 IV (09:28)
--- NOTE | 2024-06-30 10:15 | W.PN.GI.CBS2 ---
Today's Communication / Plan
-
Agree with advancement to regular diet
My office will coordinate OP ERCP with Dr Thomas in 6wks for stent removal
50mins of time spent coordinating care with pt, advanced GI endoscopist and outpatient scheduling
Assessment / Plan
-
Maggy is a 83 year old female with a past medical history of HTN, CAD, pulmonary HTN, hypothyroidism, hyperlipidemia who underwent laparoscopic cholecystectomy on 06/25/[address] Xie. Patient had post bile leak post surgery and had ERCP 06/[address] Torres which showed bile leak with choledocholithiasis s/p sphincterotomy and balloon extraction. One CBD stent placed.
Impression
- Cholecystitis s/p CYY 06/25
- Bile leak and choledocholithiasis
s/p ERCP 06/28 with sphincterotomy, balloon extraction and CBD stent
Recommendations
- C/w IVF
- Pain management per primary team
- Despite lipase today her abd pain improved
- Agree with regular diet
- Will coordinate OP ERCP with Dr Thomas in 6 wks for stent removal/repeat ERCP. This was d/w Dr Torres
Will sign off please call for questions.
Subjective
Subjective
Date of Service: June 30, 2024
Most of her abd pain is resolved. She is eager to eat regular diet. Drain is no longer billious
Objective
Data Reviewed
Laboratory Data:
Laboratory Results
06/30/24 06:55
06/30/24 06:55
Laboratory Results
Magnesium 2.0 mg/dl (1.6-2.3) 06/29/24 07:23
Total Bilirubin 1.1 mg/dl (0.2-1.3) 06/30/24 06:55
AST 35 U/L (14-36) 06/30/24 06:55
ALT 21 U/L (0-35) 06/30/24 06:55
Alkaline Phosphatase 54 U/L (38-126) 06/30/24 06:55
Lipase > 4000 U/L (23-300) H* 06/30/24 06:55
Vital Signs and I&O:
Vital Signs
Temp Pulse Resp BP Pulse Ox
97.7 F 80 14 131/62 94
06/30/24 07:00 06/30/24 07:00 06/30/24 07:00 06/30/24 07:00 06/30/24 07:00
I&O
06/29/24 06/30/24 07/01/24
06:59 06:59 06:59
Intake Total 1020 / 1020 3670 / 3670
Output Total 125 / 125 85 / 85
Balance 895 / 895 3585 / 3585
Physical Exam
Physical Exam
GEN: No acute distress, conversant, pleasant
HEENT: anicteric, extraocular movements intact, clear oropharynx without exudates
GI: soft, mildly-distended, not tender to palpation, normal active bowel sounds, no hepatosplenomegaly
EXT: warm, well perfused, trace edema bilaterally
NEURO: AAOx3, non-focal
[2024-06-30 11:00] VITALS: BP 102/61
--- NOTE | 2024-06-30 13:14 | CM ---
manager retirement reviewed patient's chart and plan is to home when stable with [facility] visiting nurses, patient would benefit from PT/OT assessments.
Plan; Home with [facility] visiting nurses.
[facility]
[phone]
--- NOTE | 2024-06-30 13:29 | W.PN.GS2 ---
Today's Communication / Plan
-
Will begin dispo planning
Assessment / Plan
-
83 yo female who is POD #5 lap cholecystectomy with IOC for chronic cholecystitis with noted choledocholithiasis which was initially thought to have been cleared intraoperatively, incidentally patient with duct of Luschka present which was able to
be ligated. DAVID left in place post operatively and now with bilious outputs noted. PPD #2 ERCP with choledocholithiasis which was cleared with sphincterotomy and stent placement
--Regular diet as tolerated
--Trend labs
--Zofran prn
--Ibuprofen, Tylenol, oxycodone, Dilaudid prn for analgesics
--OOB ambulate
--C/W DAVID
--c/w ABX
--Heparin sq and scds for VTE ppx
--Anticipate discharge home tomorrow potentially without a drain depending on its output and character/quality.
Time Spent
Total Time Spent with Patient (in minutes): 30
Subjective Data
-
Date of Service: June 30, 2024
Interval Events:
No acute events overnight. Slept well. Pain Controlled. Denies Nausea/Vomiting, +bowel function. Tolerating diet.
Objective Data
-
Intake and Output
06/29/24 06/30/24 07/01/24
06:59 06:59 06:59
Intake Total 1020 / 1020 3670 / 3670
Output Total 125 / 125 85 / 85
Balance 895 / 895 3585 / 3585
Intake:
Oral fluids 720 / 720 840 / 840
IV fluids (Total) 100 / 100 2430 / 2430
IV piggybacks 200 / 200 400 / 400
Output:
Drain Output (Total) 125 / 125 85 / 85
Right Lower Abdomen Issac- 125 / 125 85 / 85
Roach
Other:
Number of approximated SMALL 1
amounts of urine
Number of approximated MODERATE 1
amounts of urine
Number of approximated LARGE 1 2
amounts of urine
Vital Signs
Temp Pulse Resp BP Pulse Ox
97.9 F 90 16 102/61 94
06/30/24 11:00 06/30/24 11:00 06/30/24 11:00 06/30/24 11:00 06/30/24 11:00
Lab Results
06/30/24 06:55
06/30/24 06:55
Calcium 8.8 mg/dl (8.4-10.2) 06/30/24 06:55
Magnesium 2.0 mg/dl (1.6-2.3) 06/29/24 07:23
Total Bilirubin 1.1 mg/dl (0.2-1.3) 06/30/24 06:55
Direct Bilirubin 0.3 mg/dl (0.0-0.4) 06/29/24 07:23
AST 35 U/L (14-36) 06/30/24 06:55
ALT 21 U/L (0-35) 06/30/24 06:55
Alkaline Phosphatase 54 U/L (38-126) 06/30/24 06:55
Total Protein 4.4 g/dl (6.3-8.2) L D 06/30/24 06:55
Albumin 2.6 g/dl (3.5-5.0) L D 06/30/24 06:55
Physical Exam
-
GENERAL/NEURO: Awake, Alert, no distress
CHEST: Unlabored breathing on RA
ABDOMEN: Soft, Non-Tender, Non-Distended, incisions clean dry and intact, DAVID with serosanguineous output.
[2024-06-30 15:00] VITALS: BP 123/66
[2024-06-30] MEDS: TYLENOL 650 MG PO ×2 (15:17→19:13)
[2024-06-30 19:10] VITALS: BP 115/62
[2024-06-30] MEDS: ROXICODONE 5 MG PO (21:13)
[2024-06-30 23:26] VITALS: BP 130/65
[2024-07-01] VITALS (9 sets, daily range): BP systolic 118–144; BP diastolic 59–79; PULSE 75–125
[2024-07-01] MEDS: FLAGYL 500 MG 100 IV ×3 (02:48→17:30)
[2024-07-01] MEDS: LR 1000 IV ×2 (02:48→12:30)
[2024-07-01] MEDS: TYLENOL PO (02:48)
[2024-07-01] MEDS: ROXICODONE 5 MG PO (02:53)
[2024-07-01] MEDS: TYLENOL 650 MG PO ×5 (02:53→20:17)
[2024-07-01] MEDS: MOTRIN 400 MG PO (05:17)
[2024-07-01] MEDS: SYNTHROID 88 MCG PO (05:18)
[2024-07-01] MEDS: ZOFRAN 4 MG IV (05:32)
[2024-07-01 07:55] LABS: % Basophils 0.3 % (0-2); % Eosinophils 2.4 % (0-6); % Immature Granulocytes 0.3 % (0-0.5); % Lymphocytes 15.5 % (20.5-51.1); % Monocytes 7.7 % (1.7-9.3); % Neutrophils 73.8 % (42.2-75.2); Absolute Eosinophils 0.3 10^3/uL (0-0.7); Absolute Lymphocytes 1.8 10^3/uL (1.2-3.4); Absolute Monocytes 0.9 10^3/uL (0.1-0.6); Absolute Neutrophils 8.5 10^3/uL (1.4-6.5); Hematocrit 34.2 % (37.0-47.0); Hemoglobin 11.2 g/dL (12.0-16.0); Mean Corp Hgb Conc. 32.7 g/dL (33.0-37.0); Mean Corpuscular Hgb 27.6 pg (27.0-31.0); Mean Corpuscular Volume 84.2 fL (81.0-99.0); Nucleated Red Blood Cells % 0 %; Red Blood Cell Count 4.06 10^6/uL (4.20-5.40); Red Cell Dist. Width 14.9 % (11.5-14.5); White Blood Cell Count 11.6 10^3/uL (4.8-10.8)
[2024-07-01 08:02] LABS: ALT (SGPT) 18 U/L (0-35); AST (SGOT) 29 U/L (14-36); Albumin 2.3 g/dl (3.5-5.0); Alkaline Phosphatase 56 U/L (38-126); Blood Urea Nitrogen 9 mg/dl (7-17); Calcium 8.6 mg/dl (8.4-10.2); Carbon Dioxide 28 mmol/L (22-30); Chloride 102 mmol/L (98-107); Estimated Creatinine Clearance 64 ml/min; Glucose 77 mg/dl (70-99); Potassium 3.6 mmol/L (3.5-5.1); Sodium 135 mmol/L (135-145); Total Bilirubin 0.6 mg/dl (0.2-1.3); eGFR > 60.00
[2024-07-01] MEDS: HEPARIN 5000 UNITS SC ×2 (08:51→20:17)
[2024-07-01] MEDS: LEVAQUIN 100 IV (10:09)
--- NOTE | 2024-07-01 13:09 | W.PN.GS2 ---
Today's Communication / Plan
-
PT OT
Will continue to trend labs
Assessment / Plan
-
83 yo female who is POD # 6 lap cholecystectomy with IOC for chronic cholecystitis with noted choledocholithiasis which was initially thought to have been cleared intraoperatively, incidentally patient with duct of Luschka present which was able to
be ligated. DAVID left in place post operatively and now with bilious outputs noted. PPD # 3 ERCP with choledocholithiasis which was cleared with sphincterotomy and stent placement
--PT/OT
--Regular diet as tolerated
--Trend labs
--Zofran prn
--Ibuprofen, Tylenol, oxycodone, Dilaudid prn for analgesics
--OOB ambulate
--C/W DAVID
--c/w ABX
--Heparin sq and scds for VTE ppx
--Anticipate discharge home tomorrow potentially without a drain depending on its output and character/quality.
Time Spent
Total Time Spent with Patient (in minutes): 20
Subjective Data
-
Date of Service: July 01, 2024
Interval Events:
No acute events overnight. Slept poorly, pain slightly worse.. Denies Nausea/Vomiting, +bowel function. Tolerating diet, but not eating much
Objective Data
-
Intake and Output
06/30/24 07/01/24 07/02/24
06:59 06:59 06:59
Intake Total 3670 / 3670 3950 / 3950
Output Total 210 / 210
Balance 3585 / 3585 3740 / 3740
Intake:
Oral fluids 840 / 840 200 / 200
IV fluids (Total) 2430 / 2430 3450 / 3450
IV piggybacks 400 / 400 300 / 300
Output:
Drain Output (Total) 210 / 210
Right Lower Abdomen Issac- 210
Roach
Other:
Number of approximated SMALL 1 1
amounts of urine
Number of approximated MODERATE 1 2 1
amounts of urine
Number of approximated LARGE 2
amounts of urine
Vital Signs
Temp Pulse Resp BP Pulse Ox
97.5 F 76 16 131/66 94
07/01/24 11:20 07/01/24 11:20 07/01/24 11:20 07/01/24 11:20 07/01/24 11:20
Lab Results
07/01/24 07:01
07/01/24 07:01
Calcium 8.6 mg/dl (8.4-10.2) 07/01/24 07:01
Magnesium 2.0 mg/dl (1.6-2.3) 06/29/24 07:23
Total Bilirubin 0.6 mg/dl (0.2-1.3) 07/01/24 07:01
Direct Bilirubin 0.3 mg/dl (0.0-0.4) 06/29/24 07:23
AST 29 U/L (14-36) 07/01/24 07:01
ALT 18 U/L (0-35) 07/01/24 07:01
Alkaline Phosphatase 56 U/L (38-126) 07/01/24 07:01
Total Protein 4.0 g/dl (6.3-8.2) L 07/01/24 07:01
Albumin 2.3 g/dl (3.5-5.0) L 07/01/24 07:01
Physical Exam
-
GENERAL/NEURO: Awake, Alert, no distress
CHEST: Unlabored breathing on RA
ABDOMEN: Soft, Non-Tender, Non-Distended, incisions clean dry and intact. Mildly tender to palpation primarily in the epigastrium and periumbilical area as well as the right upper quadrant. DAVID is serosanguineous though slightly higher output today
at 200 cc
[2024-07-01] MEDS: LR IV (19:53)
[2024-07-01] MEDS: D5/0.45%NACL 1000 IV (20:00)
[2024-07-02] MEDS: TYLENOL PO ×4 (00:36→17:55)
[2024-07-02] MEDS: FLAGYL 500 MG 100 IV ×2 (01:41→10:53)
[2024-07-02 03:40] VITALS: BP 156/82
[2024-07-02] MEDS: ZOFRAN 4 MG IV (04:20)
[2024-07-02] MEDS: SYNTHROID PO (05:50)
--- NOTE | 2024-07-02 05:58 | W.PN.UPDATE ---
Update Note
Progress Note Update
RN reports that pt with c/o urinary freq, and burning.
Will check ua
PT is on levaquin for GI issue but would cover uti as well
--- NOTE | 2024-07-02 06:02 | PTCARENOTE ---
Pt c/o urinary frequency and burning, afebrile otherwise. TT MISDRAW HAND who ordered UA/CS.
[2024-07-02 07:11] VITALS: BP 141/77
[2024-07-02 08:59] LABS: Urine Albumin Negative (Neg - Trace); Urine Bilirubin Negative (Negative); Urine Character Clear (Clear); Urine Color Yellow; Urine Glucose Negative (Negative); Urine Ketone Trace (Negative); Urine Leukocyte Trace (Negative); Urine Nitrite Positive (Negative); Urine Occult Blood Negative (Negative); Urine Specific Gravity 1.015 (<1.030); Urine Urobilinogen Negative (Neg - 1+)
[2024-07-02] MEDS: TYLENOL 650 MG PO (09:00)
[2024-07-02] MEDS: MIRALAX 17 GRAMS PO (09:00)
[2024-07-02] MEDS: COLACE 100 MG PO (09:00)
[2024-07-02] MEDS: HEPARIN 5000 UNITS SC (09:00)
[2024-07-02 09:08] LABS: % Basophils 0.3 % (0-2); % Eosinophils 3.1 % (0-6); % Immature Granulocytes 0.4 % (0-0.5); % Lymphocytes 15.8 % (20.5-51.1); % Monocytes 7.2 % (1.7-9.3); % Neutrophils 73.2 % (42.2-75.2); Absolute Eosinophils 0.3 10^3/uL (0-0.7); Absolute Lymphocytes 1.5 10^3/uL (1.2-3.4); Absolute Monocytes 0.7 10^3/uL (0.1-0.6); Absolute Neutrophils 6.9 10^3/uL (1.4-6.5); Hematocrit 34.6 % (37.0-47.0); Hemoglobin 11.6 g/dL (12.0-16.0); Mean Corp Hgb Conc. 33.5 g/dL (33.0-37.0); Mean Corpuscular Volume 83.6 fL (81.0-99.0); Mean Platelet Volume 11.1 fL (7.4-10.4); Nucleated Red Blood Cells % 0 %; Platelet Count 195 10^3/uL (130-400); Red Blood Cell Count 4.14 10^6/uL (4.20-5.40); White Blood Cell Count 9.4 10^3/uL (4.8-10.8)
[2024-07-02 09:19] LABS: Urine Bacteria Moderate (Negative); Urine Red Blood Cell 0-2 /HPF (0-2); Urine Squamous Cell 0-2 /LPF (Few)
[2024-07-02 09:20] LABS: Urine Mucus Few
[2024-07-02 09:51] LABS: ALT (SGPT) 17 U/L (0-35); AST (SGOT) 22 U/L (14-36); Albumin 2.5 g/dl (3.5-5.0); Alkaline Phosphatase 64 U/L (38-126); Blood Urea Nitrogen 9 mg/dl (7-17); Calcium 8.4 mg/dl (8.4-10.2); Carbon Dioxide 26 mmol/L (22-30); Chloride 102 mmol/L (98-107); Estimated Creatinine Clearance 64 ml/min; Glucose 101 mg/dl (70-99); Lipase 75 U/L (23-300); Potassium 3.6 mmol/L (3.5-5.1); Sodium 134 mmol/L (135-145); Total Bilirubin 0.5 mg/dl (0.2-1.3); Total Protein 4.2 g/dl (6.3-8.2); eGFR > 60.00
[2024-07-02] MEDS: LEVAQUIN 100 IV (10:54)
--- NOTE | 2024-07-02 11:01 | W.PN.GS2 ---
Today's Communication / Plan
-
DC drain
DC home
Assessment / Plan
-
83 yo female who is POD # 7 lap cholecystectomy with IOC for chronic cholecystitis with noted choledocholithiasis which was initially thought to have been cleared intraoperatively, incidentally patient with duct of Luschka present which was able to
be ligated. DAVID left in place post operatively and now with bilious outputs noted. PPD # 4 ERCP with choledocholithiasis which was cleared with sphincterotomy and stent placement
--PT/OT
--Regular diet as tolerated
--Ibuprofen, Tylenol, oxycodone, Dilaudid prn for analgesics
--OOB ambulate
--D/C DAVID
--c/w ABX
--Heparin sq and scds for VTE ppx
--DC home
Subjective Data
-
Date of Service: July 02, 2024
AFVSS, denies abd pain, richard diet, only c/o is urinary burning/frequency
Objective Data
-
Intake and Output
07/01/24 07/02/24 07/03/24
06:59 06:59 06:59
Intake Total 3950 / 3950 3590 / 3590
Output Total 210 / 210 151 / 151
Balance 3740 / 3740 3439 / 3439
Intake:
Oral fluids 200 / 200 1440 / 1440
IV fluids (Total) 3450 / 3450 1750 / 1750
IV piggybacks 300 / 300 400 / 400
Output:
Drain Output (Total) 210 / 210 145 / 145
Right Lower Abdomen Issac- 210 / 210 145 / 145
Roach
Urine, Voided 6 / 6
Other:
Number of approximated SMALL 1
amounts of urine
Number of approximated MODERATE 2 2
amounts of urine
Vital Signs
Temp Pulse Resp BP Pulse Ox
97.4 F 71 18 141/77 95
07/02/24 07:11 07/02/24 07:11 07/02/24 07:11 07/02/24 07:11 07/02/24 07:11
Lab Results
07/02/24 08:04
07/02/24 08:04
Calcium 8.4 mg/dl (8.4-10.2) 07/02/24 08:04
Magnesium 2.0 mg/dl (1.6-2.3) 06/29/24 07:23
Total Bilirubin 0.5 mg/dl (0.2-1.3) 07/02/24 08:04
Direct Bilirubin 0.3 mg/dl (0.0-0.4) 06/29/24 07:23
AST 22 U/L (14-36) 07/02/24 08:04
ALT 17 U/L (0-35) 07/02/24 08:04
Alkaline Phosphatase 64 U/L (38-126) 07/02/24 08:04
Total Protein 4.2 g/dl (6.3-8.2) L 07/02/24 08:04
Albumin 2.5 g/dl (3.5-5.0) L 07/02/24 08:04
Physical Exam
-
Gen: NAD
Abd: soft, approp ttp, incisions cdi, drain clear serous
[2024-07-02 11:15] VITALS: BP 147/67
--- NOTE | 2024-07-02 11:17 | CM ---
Met with patient at bedside to discuss discharge plan
IMM benefit explained; form signed @ [phone]
Reported that daughter will transport home; Offer for home PT declined
Plan: discharge to home today; no services
--- NOTE | 2024-07-02 11:32 | W.DS.TRANS ---
Addendum entered and electronically signed by CAL Sher 07/03/24 10:45:
dictated #[id number]
Original Note:
DC Summary - License Clerk
-
Discharge Instructions:
Sleep Apnea Risk Low
Discharge Diagnosis/Procedures Biliary colic. Laparoscopic cholecystectomy
with cholangiogram
Diet No restrictions
Activity No strenuous activity
Driving Restrictions As prior to admission
Bathing Restrictions OK to Shower
Instructions:
Stand-Alone Forms:
Changes to Home Medications: No
Discharge Medications:
DC Medications w/original date entered in [employer]
levothyroxine 88 mcg tablet (Synthroid) 88 mcg PO HS 06/22/24
rosuvastatin 10 mg tablet 10 mg PO HS 06/22/24
acetaminophen 325 mg tablet 650 mg (2 x 325 mg) PO Q6HPRN PRN mild pain #14 tabs 06/25/24
ibuprofen 600 mg tablet 600 mg PO Q6H PRN pain #14 tabs 06/25/24
tramadol 50 mg tablet 25 mg (1/2 x 50 mg) PO Q6HPRN PRN severe pain/breakthrough pain #8 tabs 06/25/24
levofloxacin 500 mg tablet 500 mg PO DAILY 4 days #4 tabs 07/02/24
metronidazole 500 mg tablet 500 mg PO Q8H 4 days #12 tabs 07/02/24
Home Medication Changes
Pending Results: No
[2024-07-02 17:00] VITALS: BP 145/63
[2024-07-02] MEDS: DULCOLAX 10 MG RECTAL (18:07)
== END 2024-07-02 18:14 | disposition home or self-care (01) | DRG 418 ==
LOC: 2 SOUTH 18:00
PROVIDERS: Internal Medicine Gastroenterology; Nurse Practitioner Adult Health; Nurse Practitioner Family; Registered Nurse; ADMITTING PHYSICIAN Surgery; CONSULT PHYSICIAN Internal Medicine; FAMILY PHYSICIAN Family Medicine
PROC: 0FT44ZZ Resection of Gallbladder, Percutaneous Endoscopic Approach (ICD-10-PCS; 2024-06-25)
PROC: 0F794ZZ Dilation of Common Bile Duct, Percutaneous Endoscopic Approach (ICD-10-PCS; 2024-06-25)
PROC: BF502Z0 Other Imaging of Bile Ducts using Fluorescing Agent, Intraoperative (ICD-10-PCS; 2024-06-25)
PROC: 0F798DZ Dilation of Common Bile Duct with Intraluminal Device, Via Natural or Artificial Opening Endoscopic (ICD-10-PCS; 2024-06-28)
PROC: 0FC98ZZ Extirpation of Matter from Common Bile Duct, Via Natural or Artificial Opening Endoscopic (ICD-10-PCS; 2024-06-28)
DX: K80.64 Calculus of gallbladder and bile duct with chronic cholecystitis without obstruction (principal); I27.0 Primary pulmonary hypertension; K82.8 Other specified diseases of gallbladder; E03.9 Hypothyroidism, unspecified; E78.5 Hyperlipidemia, unspecified; I10 Essential (primary) hypertension; I25.10 Atherosclerotic heart disease of native coronary artery without angina pectoris; F41.9 Anxiety disorder, unspecified; E78.2 Mixed hyperlipidemia; F32.A Depression, unspecified; E55.9 Vitamin D deficiency, unspecified; I08.0 Rheumatic disorders of both mitral and aortic valves; E78.00 Pure hypercholesterolemia, unspecified; Z79.890 Hormone replacement therapy; Z88.0 Allergy status to penicillin
CPT/HCPCS: 88304; 74022; 74300; 74330; 76000; 80053; 80076; 81003; 81015; 83690; 83735; 85025; 87086; 89060; 97162; 97166; C1769; C2617; J1610

== ENCOUNTER → 2024-07-17 12:10 | Outpatient (REF) | payer MEDICARE, SELFPAY | LOC: HWRAD 12:10 | PROVIDERS: ATTENDING PHYSICIAN Surgery; FAMILY PHYSICIAN Family Medicine | DX: K81.1 Chronic cholecystitis (principal); Z90.49 Acquired absence of other specified parts of digestive tract | CPT/HCPCS: 74177; Q9967 ==

== ENCOUNTER → 2024-07-22 12:07 | Outpatient (REF) | payer MEDICARE, SELFPAY | LOC: RAD 12:07 | PROVIDERS: ATTENDING PHYSICIAN Surgery; FAMILY PHYSICIAN Family Medicine | DX: R06.02 Shortness of breath (principal) | CPT/HCPCS: 93970 ==

== ENCOUNTER → 2024-07-28 07:43 | Outpatient (REF) | payer MEDICARE, SELFPAY | LOC: HWRAD 07:43 | PROVIDERS: ATTENDING PHYSICIAN Surgery; FAMILY PHYSICIAN Family Medicine | DX: K81.1 Chronic cholecystitis (principal); Z90.49 Acquired absence of other specified parts of digestive tract | CPT/HCPCS: 74177; Q9967 ==

== ENCOUNTER → 2024-08-03 11:56 | Outpatient (REF) | payer MEDICARE, SELFPAY ==
[2024-08-03 16:29] LABS: % Basophils 0.5 % (0-2); % Eosinophils 0.9 % (0-6); % Immature Granulocytes 0.4 % (0-0.5); % Lymphocytes 12.2 % (20.5-51.1); % Monocytes 6.7 % (1.7-9.3); % Neutrophils 79.3 % (42.2-75.2); Absolute Eosinophils 0.1 10^3/uL (0-0.7); Absolute Monocytes 0.5 10^3/uL (0.1-0.6); Absolute Neutrophils 6.4 10^3/uL (1.4-6.5); Hematocrit 45.5 % (37.0-47.0); Hemoglobin 14.7 g/dL (12.0-16.0); Mean Corp Hgb Conc. 32.3 g/dL (33.0-37.0); Mean Corpuscular Hgb 28.8 pg (27.0-31.0); Mean Corpuscular Volume 89.2 fL (81.0-99.0); Mean Platelet Volume 10.8 fL (7.4-10.4); Nucleated Red Blood Cells % 0 %; Platelet Count 289 10^3/uL (130-400); Red Cell Dist. Width 15.2 % (11.5-14.5); White Blood Cell Count 8.1 10^3/uL (4.8-10.8)
[2024-08-03 16:32] LABS: ALT (SGPT) 14 U/L (0-35); AST (SGOT) 21 U/L (14-36); Albumin 4.6 g/dl (3.5-5.0); Alkaline Phosphatase 83 U/L (38-126); Blood Urea Nitrogen 19 mg/dl (7-17); Carbon Dioxide 28 mmol/L (22-30); Chloride 100 mmol/L (98-107); Glucose 141 mg/dl (70-99); Potassium 4.5 mmol/L (3.5-5.1); Sodium 141 mmol/L (135-145); Total Bilirubin 0.7 mg/dl (0.2-1.3); Total Protein 6.7 g/dl (6.3-8.2); eGFR > 60.00
== END ==
LOC: HWLAB 11:56
PROVIDERS: ATTENDING PHYSICIAN Surgery; FAMILY PHYSICIAN Family Medicine
DX: K81.1 Chronic cholecystitis (principal); Z90.49 Acquired absence of other specified parts of digestive tract
CPT/HCPCS: 36415; 80053; 85025

== ENCOUNTER → 2024-08-07 08:31 | Outpatient (REF) | payer MEDICARE, SELFPAY ==
[2024-08-07 09:16] VITALS: BP 168/64; BP_SYST 68
[2024-08-07] MEDS: MOTRIN 600 MG PO (11:10)
[2024-08-07 11:30] VITALS: BP 137/60
== END ==
LOC: RADI 08:31
PROVIDERS: ATTENDING PHYSICIAN Surgery; FAMILY PHYSICIAN Family Medicine
DX: K65.1 Peritoneal abscess (principal); Z90.49 Acquired absence of other specified parts of digestive tract
CPT/HCPCS: 49405; 76942; 87015; 87070; 87205; 99152; 99153; C1729; C1769

== ENCOUNTER → 2024-08-18 10:04 | Outpatient (REF) | payer MEDICARE, SELFPAY | LOC: RAD 10:04 | PROVIDERS: ATTENDING PHYSICIAN Surgery; FAMILY PHYSICIAN Family Medicine | DX: R10.9 Unspecified abdominal pain (principal) | CPT/HCPCS: 74246; 74248 ==

== ENCOUNTER → 2024-08-21 12:15 | Outpatient (REF) | payer MEDICARE, SELFPAY | LOC: RAD 12:15 | PROVIDERS: ATTENDING PHYSICIAN Surgery; FAMILY PHYSICIAN Family Medicine | DX: K65.1 Peritoneal abscess (principal) | CPT/HCPCS: 74177; Q9967 ==

== ENCOUNTER → 2024-09-07 10:51 | Outpatient (REF) | payer MEDICARE, SELFPAY ==
[2024-09-07 15:51] LABS: % Basophils 0.5 % (0-2); % Immature Granulocytes 0.1 % (0-0.5); % Lymphocytes 27.4 % (20.5-51.1); Absolute Eosinophils 0.1 10^3/uL (0-0.7); Absolute Lymphocytes 2.2 10^3/uL (1.2-3.4); Absolute Monocytes 0.5 10^3/uL (0.1-0.6); Absolute Neutrophils 5.2 10^3/uL (1.4-6.5); Hematocrit 43.3 % (37.0-47.0); Hemoglobin 14.2 g/dL (12.0-16.0); Mean Corp Hgb Conc. 32.8 g/dL (33.0-37.0); Mean Corpuscular Hgb 29.2 pg (27.0-31.0); Mean Corpuscular Volume 89.1 fL (81.0-99.0); Mean Platelet Volume 10.5 fL (7.4-10.4); Nucleated Red Blood Cells % 0 %; Platelet Count 219 10^3/uL (130-400); Red Blood Cell Count 4.86 10^6/uL (4.20-5.40)
[2024-09-07 15:55] LABS: ALT (SGPT) 13 U/L (0-35); AST (SGOT) 20 U/L (14-36); Albumin 4.4 g/dl (3.5-5.0); Alkaline Phosphatase 79 U/L (38-126); Blood Urea Nitrogen 17 mg/dl (7-17); Calcium 9.7 mg/dl (8.4-10.2); Carbon Dioxide 29 mmol/L (22-30); Chloride 102 mmol/L (98-107); Glucose 93 mg/dl (70-99); Potassium 4.6 mmol/L (3.5-5.1); Sodium 141 mmol/L (135-145); Total Bilirubin 0.8 mg/dl (0.2-1.3); Total Protein 6.3 g/dl (6.3-8.2); eGFR > 60.00
== END ==
LOC: HWLAB 10:51
PROVIDERS: ATTENDING PHYSICIAN Surgery; FAMILY PHYSICIAN Family Medicine
DX: R10.11 Right upper quadrant pain (principal); R10.9 Unspecified abdominal pain; Z90.49 Acquired absence of other specified parts of digestive tract
CPT/HCPCS: 36415; 80053; 85025

== ENCOUNTER 2024-10-06 06:29 | Day surgery (SDC) | payer MEDICARE, SELFPAY ==
[2024-10-06 12:10] VITALS: BP 172/83
[2024-10-06 12:24] VITALS: BMI 22.0
[2024-10-06 12:25] VITALS: BMI 22.0
[2024-10-06 14:13] VITALS: BP 135/67
[2024-10-06 14:15] VITALS: BP 130/65
[2024-10-06 14:30] VITALS: BP 122/81
[2024-10-06 14:45] VITALS: BP 132/111
== END 2024-10-06 15:30 | disposition home or self-care (01) ==
LOC: SDS 06:29
PROVIDERS: ATTENDING PHYSICIAN Internal Medicine Gastroenterology
DX: K83.8 Other specified diseases of biliary tract (principal); Z96.89 Presence of other specified functional implants; Z46.59 Encounter for fitting and adjustment of other gastrointestinal appliance and device; K57.10 Diverticulosis of small intestine without perforation or abscess without bleeding
CPT/HCPCS: 43264; 43275; 74330; 76000; C1769

== ENCOUNTER → 2025-04-02 08:12 | Outpatient (REF) | payer MEDICARE, SELFPAY | LOC: HWRAD 08:12 | PROVIDERS: ATTENDING PHYSICIAN Obstetrics & Gynecology; FAMILY PHYSICIAN Family Medicine | DX: D25.9 Leiomyoma of uterus, unspecified (principal) | CPT/HCPCS: 76830; 76856 ==

== ENCOUNTER → 2025-04-26 07:37 | Outpatient (REF) | payer MEDICARE, SELFPAY ==
[2025-04-26 09:04] LABS: % Basophils 0.6 % (0-2); % Eosinophils 1.5 % (0-6); % Immature Granulocytes 0.3 % (0-0.5); % Lymphocytes 36.4 % (20.5-51.1); % Monocytes 6.9 % (1.7-9.3); % Neutrophils 54.3 % (42.2-75.2); Absolute Eosinophils 0.1 10^3/uL (0-0.7); Absolute Lymphocytes 2.5 10^3/uL (1.2-3.4); Absolute Monocytes 0.5 10^3/uL (0.1-0.6); Absolute Neutrophils 3.7 10^3/uL (1.4-6.5); Hematocrit 41.8 % (37.0-47.0); Hemoglobin 13.8 g/dL (12.0-16.0); Mean Corpuscular Hgb 29.5 pg (27.0-31.0); Mean Corpuscular Volume 89.3 fL (81.0-99.0); Mean Platelet Volume 10.5 fL (7.4-10.4); Nucleated Red Blood Cells % 0 %; Platelet Count 196 10^3/uL (130-400); Red Blood Cell Count 4.68 10^6/uL (4.20-5.40); Red Cell Dist. Width 14.9 % (11.5-14.5); White Blood Cell Count 6.8 10^3/uL (4.8-10.8)
[2025-04-26 09:44] LABS: Blood Urea Nitrogen 15 mg/dl (7-17); Calcium 9.2 mg/dl (8.4-10.2); Carbon Dioxide 28 mmol/L (22-30); Chloride 105 mmol/L (98-107); Glucose 97 mg/dl (70-99); Potassium 4.2 mmol/L (3.5-5.1); Sodium 141 mmol/L (135-145); eGFR > 60.00
== END ==
LOC: SDSPAT 07:37
PROVIDERS: ATTENDING PHYSICIAN Obstetrics & Gynecology; FAMILY PHYSICIAN Family Medicine; OTHER PHYSICIAN Internal Medicine Cardiovascular Disease
DX: Z01.818 Encounter for other preprocedural examination (principal)
CPT/HCPCS: 80048; 85025; 86850; 86900; 86901; 93005

== ENCOUNTER 2025-05-04 05:43 | Day surgery (SDC) | payer MEDICARE, SELFPAY ==
[2025-04-26 14:16] VITALS: BMI 22.7
[2025-05-04] VITALS (7 sets, daily range): BP systolic 104–145; BP diastolic 57–77; BMI 22.7
[2025-05-04] MEDS: TYLENOL 1000 MG PO (06:25)
[2025-05-04] MEDS: NORMOSOL-R/PLASMALYTE-A 1000 IV (06:45)
== END 2025-05-04 09:46 | disposition home or self-care (01) ==
LOC: SDS 05:43
PROVIDERS: ATTENDING PHYSICIAN Obstetrics & Gynecology
DX: N95.0 Postmenopausal bleeding (principal); N85.8 Other specified noninflammatory disorders of uterus; I34.1 Nonrheumatic mitral (valve) prolapse; E03.9 Hypothyroidism, unspecified; Z88.0 Allergy status to penicillin; Z80.3 Family history of malignant neoplasm of breast; Z80.51 Family history of malignant neoplasm of kidney; Z82.49 Family history of ischemic heart disease and other diseases of the circulatory system
CPT/HCPCS: 58558; 88305; 86900; 86901